=== PATIENT | male | born 1980 | race Caucasian/White ===

== ENCOUNTER 2017-01-12 14:45 | Inpatient (IN) | payer BC ==
[~2017-01-12] VITALS: Ht 162.6 cm; Wt 85.7 kg
[2017-01-12 17:53] LABS: HEMOGLOBIN 16.1 gm/dl (14.0-17.5); RED BLOOD COUNT 5.25 M/UL (4.20-5.50)
[2017-01-12 17:55] LABS: WHITE BLOOD COUNT 33.7 K/UL (4.5-11.0)
[2017-01-12 18:05] LABS: BUN/CREATININE RATIO 15 (0-10)
[2017-01-13 05:33] LABS: HEMOGLOBIN 14.1 gm/dl (14.0-17.5); RED BLOOD COUNT 4.6 M/UL (4.20-5.50); WHITE BLOOD COUNT 41.7 K/UL (4.5-11.0)
[2017-01-13 05:36] LABS: BUN/CREATININE RATIO 14 (0-10)
[2017-01-14 13:46] LABS: HEMOGLOBIN 14.2 gm/dl (14.0-17.5); RED BLOOD COUNT 4.65 M/UL (4.20-5.50)
[2017-01-14 13:47] LABS: WHITE BLOOD COUNT 29.1 K/UL (4.5-11.0)
[2017-01-15 06:02] LABS: HEMOGLOBIN 13.6 gm/dl (14.0-17.5); RED BLOOD COUNT 4.51 M/UL (4.20-5.50); WHITE BLOOD COUNT 24.7 K/UL (4.5-11.0)
[2017-01-16 04:30] LABS: HEMOGLOBIN 13.6 gm/dl (14.0-17.5); RED BLOOD COUNT 4.47 M/UL (4.20-5.50); WHITE BLOOD COUNT 24.9 K/UL (4.5-11.0)
[2017-01-17 06:27] LABS: HEMOGLOBIN 13.9 gm/dl (14.0-17.5); RED BLOOD COUNT 4.57 M/UL (4.20-5.50); WHITE BLOOD COUNT 28.9 K/UL (4.5-11.0)
[2017-01-18 06:37] LABS: HEMOGLOBIN 14.5 gm/dl (14.0-17.5); RED BLOOD COUNT 4.81 M/UL (4.20-5.50)
[2017-01-18 07:19] LABS: WHITE BLOOD COUNT 32.7 K/UL (4.5-11.0)
[2017-01-19 06:18] LABS: BUN/CREATININE RATIO 18 (0-10)
[2017-01-19 06:29] LABS: HEMOGLOBIN 14.2 gm/dl (14.0-17.5); RED BLOOD COUNT 4.71 M/UL (4.20-5.50)
[2017-01-19 06:42] LABS: WHITE BLOOD COUNT 35.8 K/UL (4.5-11.0)
[2017-01-20 06:53] LABS: BUN/CREATININE RATIO 18 (0-10); HEMOGLOBIN 13.5 gm/dl (14.0-17.5); RED BLOOD COUNT 4.47 M/UL (4.20-5.50)
[2017-01-20 06:54] LABS: WHITE BLOOD COUNT 33.9 K/UL (4.5-11.0)
[2017-01-20] MEDS ORDERED: NORCO 7.5-3251 EACH PO (10:30)
[2017-01-20] MEDS ORDERED: ASPIRIN CHEWABL81 MG PO (10:31)
== END 2017-01-20 15:00 | disposition home or self-care (01) | DRG 342 ==
LOC: ER1 14:45 → M/S 19:40 → ZEROF 19:40 → M/S 21:33 → ZEROF 01-17 13:54 → M/S 01-20 15:00
PROVIDERS: Emergency Medicine; Internal Medicine Infectious Disease; Physician Assistant; Surgery; ADMIT Surgery
PROC: 0DTJ4ZZ Resection of Appendix, Percutaneous Endoscopic Approach (ICD-10-PCS; principal; 2017-01-12 23:15)
DX: K35.80 Unspecified acute appendicitis (principal); J98.11 Atelectasis; L76.32 Postprocedural hematoma of skin and subcutaneous tissue following other procedure; Y83.8 Other surgical procedures as the cause of abnormal reaction of the patient, or of later complication, without mention of misadventure at the time of the procedure; Y73.3 Surgical instruments, materials and gastroenterology and urology devices (including sutures) associated with adverse incidents; D72.829 Elevated white blood cell count, unspecified; D47.3 Essential (hemorrhagic) thrombocythemia; I34.0 Nonrheumatic mitral (valve) insufficiency; E66.9 Obesity, unspecified; Z68.32 Body mass index [BMI] 32.0-32.9, adult; Z72.0 Tobacco use; Z82.49 Family history of ischemic heart disease and other diseases of the circulatory system; Z83.2 Family history of diseases of the blood and blood-forming organs and certain disorders involving the immune mechanism; Z83.6 Family history of other diseases of the respiratory system; Z82.0 Family history of epilepsy and other diseases of the nervous system
CPT/HCPCS: 36415; 71020; 80048; 80053; 81001; 81206; 81207; 82962; 83605; 83615; 83690; 84550; 85007; 85025; 85027; 85384; 85610; 85730; 86140; 87040; 96374; 99285; J0295; J1100; J1335; J1885; J2185; J2250; J2405; J2710; J3010; J7030; J7050; J7120; Q9962

== ENCOUNTER 2021-10-20 12:59 | Emergency (ER) | payer BC ==
[~2021-10-20 12:59] MED LIST: ASPIRIN CHEWABL81 MG PO; NORCO 7.5-3251 EACH PO
[2021-10-20] MEDS ORDERED: TRAMADOL HCL50 MG PO (15:10)
[2021-10-20] MEDS ORDERED: MEDROL4 MG PO (15:10)
== END 2021-10-20 15:30 | disposition home or self-care (01) ==
LOC: ER1 12:59
DX: M54.41 Lumbago with sciatica, right side (principal); R10.813 Right lower quadrant abdominal tenderness; Z85.6 Personal history of leukemia; Z90.89 Acquired absence of other organs
CPT/HCPCS: 81001; 99284